=== PATIENT | male | born 1970 | race Caucasian/White ===

== ENCOUNTER → 2017-09-28 14:35 | Outpatient (CLI) | payer OTHER | END | disposition home or self-care (01) | LOC: D.CT 14:35 | DX: J32.9 Chronic sinusitis, unspecified (principal) ==

== ENCOUNTER → 2018-04-23 10:52 | Outpatient (CLI) | payer OTHER ==
--- NOTE | ~2018-04-23 | EC ---
PATIENT:RUDOLPH OLIVAS DATE OF SERVICE: 04/23/18 SEX: M MEDICAL RECORD: [id number] DATE OF : [birth year] [facility] AGE OF PATIENT: 47 ADMISSION DATE: 04/23/18 REFERRING PHYSICIAN: INTERPRETING PHYSICIAN: BENJIE NIETO MD ECHOCARDIOGRAM REPORT ECHO CHARGES 4 ECHO COMPLETE Date: 04/23 CLINICAL DIAGNOSIS: SOB,CP PALPATIONS ECHOCARDIOGRAPHIC MEASUREMENTS (adult normal given) AC root (d.<3.7cm) 3.7 cm LV Septum d (<1.2 cm> 1.2 cm Valve Excursion 2.0 cm LV Septum (systole) 1.4 cm Left Atria (s.<4.0cm> 3.1 cm LVPW d(<1.2cm) 1.3 cm RV (d.<2.3cm) 4.0 cm LVPW (sytole) 1.6 cm LV diastole(<5.6CM) 4.9 cm MV E-F(>70mm/sec) cm LV systole 3.7 cm LVOT Diameter 1.9 cm MV exc.(>10mm) 2.0 cm Est.ejection fraction (50-75%) % DOPPLER: LVIT cm/sec A 64.0 cm/sec E 89.0 cm/sec LA cm/sec RVSP 30 mmHg LVOT 115 cm/sec AOP1/2T m/s Asc. Ao 124 cm/sec RVOT 57 cm/sec RA cm/sec PA 86 cm/sec AV Gradient Peak 6.14 mmHg AV Mean 3.23 mmHg AV Area 2.5 cm MV Gradient Peak 3.7 mmHg MV Mean 1.22 mmHg MV Area cm COMMENTS: Process Steward: 2 LILA STEEN Licensed Midwife: 4 Dr. Nieto TAPE# PACS Pericardial Effusion N DATE OF SERVICE: PROCEDURE: Transthoracic echocardiogram. FINDINGS: 1. The left ventricle is difficult to visualize; however, the function appears to be grossly normal. Inflow characteristics were normal. There appears to be evidence of left ventricular hypertrophy. 2. The left atrium, again not well visualized, but overall appears to be normal. ECHOCARDIOGRAM REPORT [id number] RUDOLPH OLIVAS 3. The right ventricle appears to be mildly dilated. 4. Aortic valve appears to be normal. 5. The mitral valve overall structurally normal. 6. The tricuspid valve has trace to mild tricuspid regurgitation. RVSP is mildly elevated at 30 mmHg. 7. The right atrium is mildly dilated. 8. The interatrial septum appears to be intact. 9. The pulmonic valve is grossly normal. 10. The pericardium appears to be normal. CONCLUSIONS: This is a normal echocardiogram for stated age with the exception of mild dilatation of right-sided structures. TRANSINT:[id number] Voice Confirmation ID: [id number] DOCUMENT ID: [id number] BENJIE NIETO MD at 1458 CC: [id number] DICTATION DATE: 04/26/18 0828 LIBRARY TECHNICIAN: 04/26/18 1032 DEP CLI 04/23/18 [facility] [address] [place] [address]
== END | disposition home or self-care (01) ==
LOC: D.ECHO 10:52
DX: R07.9 Chest pain, unspecified (principal); R06.02 Shortness of breath; R00.2 Palpitations

== ENCOUNTER → 2018-06-24 18:16 | Outpatient (CLI) | payer OTHER ==
[2018-06-24 19:24] LABS: CHOL - HDL RATIO 3.8 ratio (2.3-4.9); LDL-HDL RATIO 2.4 ratio (1.5-3.5)
== END | disposition home or self-care (01) ==
LOC: D.LABREF 18:16
PROVIDERS: Internal Medicine Cardiovascular Disease
DX: E78.5 Hyperlipidemia, unspecified (principal)